=== PATIENT | male | born 1985 | race Caucasian/White ===

== ENCOUNTER 2025-01-17 12:34 | Emergency (ER) | payer OTHER ==
--- NOTE | 2025-01-17 13:07 | EDPHYS ---
Physician Documentation [facility] Name: Thomas Falk Age: 39 yrs Sex: Male : 1985 Arrival Date: 01/17/2025 Time: 12:34 Bed DX4 Private MD: ED Physician Dre Mcduffie HPI: 01/17 18:17 This 39 yrs old Male presents to ER via Ambulatory with complaints of dr5 Toothache. 18:17 The patient presents with broken tooth/teeth, redness, swelling. Onset: The dr5 symptoms/episode began/occurred 2 day(s) ago. Patient is a 39-year-old male with history of kidney stones coming in with right sided dental pain and buccal swelling started 2 days ago. Patient reports that yesterday he he popped the swelling and had discharge and feeling better.. Historical: - Allergies: 12:52 No Known Allergies; ll1 - PMHx: 12:52 Kidney stone; ll1 - PSHx: 12:52 abscess; ll1 - Immunization history:: Adult Immunizations up to date. - Social history:: Smoking status: Patient reports the use of cigarette tobacco products, smokes one pack cigarettes per day. ROS: 18:17 Constitutional: as per hpi dr5 Exam: 18:17 Constitutional: This is a well developed, well nourished patient who is awake, alert, dr5 and in no acute distress. Head/Face: Normocephalic, atraumatic. Eyes: Pupils equal round and reactive to light, extra-ocular motions intact. Lids and lashes normal. Conjunctiva and sclera are non-icteric and not injected. Cornea within normal limits. Periorbital areas with no swelling, redness, or edema. Neck: Trachea midline, no thyromegaly or masses palpated, and no cervical lymphadenopathy. Supple, full range of motion without nuchal rigidity, or vertebral point tenderness. No Meningismus. Chest/axilla: Normal chest wall appearance and motion. Nontender with no deformity. No lesions are appreciated. Cardiovascular: Regular rate and rhythm with a normal S1 and S2. Normal PMI, no JVD. No pulse deficits. Respiratory: Lungs have equal breath sounds bilaterally, clear to auscultation. No rales, rhonchi or wheezes noted. No increased work of breathing, no retractions or nasal flaring. Back: No spinal tenderness. No costovertebral tenderness. Full range of motion. Skin: Warm, dry with normal turgor. Normal color with no rashes, no lesions, and no evidence of cellulitis. Neuro: Awake and alert, GCS 15, oriented to person, place, time, and situation. Cranial nerves II-XII grossly intact. Motor strength 5/5 in all extremities. Sensory grossly intact. Cerebellar exam normal. Normal gait. 18:17 ENT: Mouth: abscess, that is moderate, of the gums and right buccal mucosa, No trismus, no secretions, Vital Signs: 12:53 BP 135 / 91; Pulse 70; Resp 17; Temp 98.6; Pulse Ox 100% ; Weight 108.86 kg; Height 6 ll1 ft. 2 in. ; Pain 7/10; 12:53 Body Mass Index 30.81 (108.86 kg, 187.96 cm) ll1 12:53 Pain Scale: Adult ll1 MDM: 12:40 Medical Screening Exam initiated dr5 18:17 Differential diagnosis: dental caries, dental abscess, pericoronitis. Data reviewed: dr5 vital signs, nurses notes. Care significantly affected by the following Social Determinants of Health: Poor access to healthcare and/or lack of insurance, Poor access to transportation, Problems related to employment. Counseling: I had a detailed discussion with the patient and/or guardian regarding the historical points, exam findings, and any diagnostic results supporting the discharge/admit diagnosis, the presence of at least one elevated blood pressure reading (>120/80) during this emergency department visit, the need for outpatient follow up, for definitive care, a dentist, a family practitioner, to return to the emergency department if symptoms worsen or persist or if there are any questions or concerns that arise at home. ED course: Recommended patient alternate Tylenol Motrin for pain, will add tramadol to take for breakthrough pain, and Augmentin prescribed. Recommend patient follow-up primary care doctor and follow-up with dentist for further management. All questions answered and strict ER precautions.. Administered Medications: No medications were administered Disposition: 20:17 I was immediately available on-site in the Emergency Department for consultation in the fl3 care of the patient. . Disposition Summary: 01/17/25 13:07 Discharge Ordered Notes: Location: Home dr5 Condition: Stable dr5 Diagnosis - Cellulitis and abscess of mouth dr5 Followup: dr5 - With: Emergency Department - When: As needed - Reason: Worsening of condition Followup: dr5 - With: Private Physician - When: 1 - 2 days - Reason: Recheck today's complaints, Continuance of care, Re-evaluation by your physician Discharge Instructions: - Discharge Summary Sheet dr5 - Dental Abscess dr5 Forms: - Work release form dr5 - Medication Reconciliation Form dr5 - Antibiotic Education dr5 - Patient Portal Instructions dr5 - Leadership Thank You Letter dr5 Prescriptions: - Augmentin 875-125 mg Oral Tablet - take 1 tablet ORAL route every 12 hours for 10 days; 20 tablet; Refills: 0, dr5 Product Selection Permitted - Tramadol 50 mg Oral Tablet - take 1 tablet ORAL route every 8 hours as needed; 12 tablet; Refills: 0, dr5 Product Selection Permitted Signatures: Concepción Esteban RN RN ll1 Dre Mcduffie DO DO ms3 Kiko Alcantara, CERTIFIED ORTHOTIST-C CERTIFIED ORTHOTIST-Cdr5
--- NOTE | 2025-01-17 13:07 | ER ---
Nurse's Notes [facility] Name: Thomas Falk Age: 39 yrs Sex: Male : 1985 Arrival Date: 01/17/2025 Time: 12:34 Bed DX4 Private MD: Diagnosis: Cellulitis and abscess of mouth Presentation: 01/17 12:53 Chief complaint: Patient states: R upper jaw/tooth pain since Friday. Was very ll1 swollen yesterday, and it started draining today. Coronavirus screen: Client denies travel out of the [place] in the last 14 days. At this time, the client does not indicate any symptoms associated with coronavirus-19. Ebola Screen: Patient denies travel to an Ebola-affected area in the 21 days before illness onset. Initial Sepsis Screen: Does the patient meet any 2 criteria? No. Patient's initial sepsis screen is negative. Does the patient have a suspected source of infection? No. Patient's initial sepsis screen is negative. Risk Assessment: Do you want to hurt yourself or someone else? Patient reports no desire to harm self or others. Onset of symptoms was January 15, 2025. 12:53 Method Of Arrival: Ambulatory ll1 12:53 Acuity: SHERRY 4 ll1 Triage Assessment: 12:53 General: Appears uncomfortable, Behavior is calm, cooperative, appropriate for age. ll1 Pain: Complains of pain in R upper jaw/tooth pain. EENT: Reports pain in right zygomatic area. Historical: - Allergies: 12:52 No Known Allergies; ll1 - PMHx: 12:52 Kidney stone; ll1 - PSHx: 12:52 abscess; ll1 - Immunization history:: Adult Immunizations up to date. - Social history:: Smoking status: Patient reports the use of cigarette tobacco products, smokes one pack cigarettes per day. Screenin:11 [facility] ED Fall Risk Assessment (Adult) History of falling in the last 3 months, ss including since admission No falls in past 3 months (0 pts). Abuse screen: Denies threats or abuse. Denies injuries from another. Nutritional screening: No deficits noted. Tuberculosis screening: Never had TB. Assessment: 13:11 General: Appears in no apparent distress. comfortable, Behavior is calm, cooperative. ss Pain: Complains of pain in right zygomatic area Pain currently is 7 out of 10 on a pain scale. Quality of pain is described as aching, Pain began 2-3 days ago. Is continuous. Neuro: Level of Consciousness is awake, alert, obeys commands, Oriented to person, place, time, situation. Respiratory: Airway is patent Respiratory effort is even, unlabored, Respiratory pattern is regular, symmetrical. Derm: Skin is intact, is healthy with good turgor, Skin is dry, Skin is pink, warm \T\ dry. normal. Vital Signs: 12:53 BP 135 / 91; Pulse 70; Resp 17; Temp 98.6; Pulse Ox 100% ; Weight 108.86 kg; Height 6 ll1 ft. 2 in. ; Pain 7/10; 12:53 Body Mass Index 30.81 (108.86 kg, 187.96 cm) ll1 12:53 Pain Scale: Adult ll1 ED Course: 12:36 Patient arrived in ED. mr 12:39 Kiko Alcantara, FLORESITA [facility]5 12:39 Dre Mcduffie DO is Attending Physician. dr5 12:49 Arm band placed on. ll1 12:55 Triage completed. ll1 13:11 Charlette Salamanca, RN is Primary Nurse. ss 13:11 Patient has correct armband on for positive identification. ss 13:11 No provider procedures requiring assistance completed. Patient did not have IV access ss during this emergency room visit. Administered Medications: No medications were administered Medication: 13:11 VIS not applicable for this client. ss Outcome: 13:07 Discharge ordered by MD. dr5 13:11 Discharged to home ambulatory, ss 13:11 Condition: good 13:11 Discharge instructions given to patient, family, Instructed on discharge instructions, follow up and referral plans. medication usage, Demonstrated understanding of instructions, follow-up care, medications, Prescriptions given X 2, 13:12 Patient left the ED. ss Signatures: Clarissa Obrien, Narinder Barcenas mr Charlette Salamanca RN RN Concepción Esteban RN RN 1 Kiko Alcantara, FLORESITA QUALITY ASSURANCE CONSULTANT-Cdr5
[2025-01-17 13:19] VITALS: BP 135/91; TEMP 98.6; O2SAT 100
== END 2025-01-17 13:12 | disposition home or self-care (01) ==
LOC: ER 12:34
DX: K12.2 Cellulitis and abscess of mouth (principal); F17.210 Nicotine dependence, cigarettes, uncomplicated
CPT/HCPCS: 99283